=== PATIENT | male | born 1995 | race Two or more races ===

== ENCOUNTER 2017-07-24 11:32 | Emergency (ER) | payer OTHER ==
[2017-07-24 11:49] VITALS: BMI 25.3
[2017-07-24 11:52] VITALS: PULSE 89; RESP 16; TEMP 97.8; O2SAT 99
[2017-07-24 12:01] VITALS: BP 127/69
--- NOTE | 2017-07-24 12:03 | ED PDOC ---
Arrival/HPI - General Chief Complaint: Eye Problem Time Seen by Provider: 07/24/17 11:40 Historian: Patient, Parent - History of Present Illness Narrative History of Present Illness (Text): you were treated in the ED today for tetanus uptodate past 5 years, doesn't wear glasses or contact lenses and yesterday got hit in the right eye with a branch with pain and light sensitivity and otherwise without any nausea/vomiting /headache/dizziness/difficulty breathing/chest pain/abdomen pain/numbness/ tingling/loss of limb function/pain with urination. 07/24/17 11:57 07/24/17 11:58 07/24/17 12:04 Time/Duration: 24 hours Symptom Onset: Gradual Symptom Course: Unchanged Quality: Aching Severity Level: 2 Activities at Onset: Rest Context: Sitting Past Medical History - Provider Review Nursing Documentation Reviewed: Yes - Travel History Have you recently traveled outside [place] w/in the past 3 mons?: No - Psychiatric Hx Substance Use: No Family/Social History - Physician Review Nursing Documentation Reviewed: Yes Family/Social History: No Known Family HX Smoking Status: Never Smoked Hx Alcohol Use: No Hx Substance Use: No Allergies/Home Meds Allergies/Adverse Reactions: Allergies No Known Allergies Allergy (Verified 05/02/15 09:54) Review of Systems - Review of Systems Constitutional: Normal Eyes: Eye Pain ENT: Normal Respiratory: Normal Cardiovascular: Normal Gastrointestinal: Normal Genitourinary Male: Normal Musculoskeletal: Normal Skin: Normal Neurological: Normal Endocrine: Normal Hemo/Lymphatic: Normal Psychiatric: Normal Physical Exam Vital Signs Reviewed: Yes Vital Signs Temp Pulse Resp BP Pulse Ox 07/24/17 11:59 127/69 07/24/17 11:49 97.8 F 89 16 99 Temperature: Afebrile Blood Pressure: Hypertensive Pulse: Regular Appearance: Positive for: Well-Appearing, Non-Toxic, Comfortable Pain Distress: None Mental Status: Positive for: Alert and Oriented X 3 - Systems Exam Head: Present: Atraumatic, Normocephalic Pupils: Present: PERRL Extroacular Muscles: Present: EOMI Conjunctiva: Present: Normal Ears: Present: Normal Mouth: Present: Moist Mucous Membranes Pharnyx: Present: Normal Nose (External): Present: Atraumatic Nose (Internal): Present: Normal Inspection Neck: Present: Normal Range of Motion Respiratory/Chest: Present: Clear to Auscultation, Good Air Exchange Cardiovascular: Present: Regular Rate and Rhythm Abdomen: No: Tenderness, Distention, Normal Bowel Sounds, Peritoneal Signs, Rebound, Guarding, McBurney's Point Tender, Rovsing's Sign Present, Hernias, Feeding Tubes, Ostomy Tubes, Mass/Organomegaly, Scars, Other Back: Present: Normal Inspection Upper Extremity: Present: Normal Inspection Lower Extremity: Present: Normal Inspection Neurological: Present: GCS=15, CN II-XII Intact, Speech Normal, Motor Func Grossly Intact Skin: Present: Warm, Normal Color Psychiatric: Present: Alert, Oriented x 3, Normal Insight, Normal Concentration Medical Decision Making ED Course and Treatment: you were treated in the ED today for tetanus uptodate past 5 years, doesn't wear glasses or contact lenses and yesterday got hit in the right eye with a branch with pain and light sensitivity and otherwise without any nausea/vomiting /headache/dizziness/difficulty breathing/chest pain/abdomen pain/numbness/ tingling/loss of limb function/pain with urination. You were otherwise breathing easily, smiling and talking with your mother, good strength/sensation , walking easily, clear lungs, no abdomen tenderness, left eye no acute findings and vision 20/20 and right eye vision 20/20 and magnification/slit lamp /flourosein examination with corneal injury near the pupil but no foriegn body, no fever temp 97.8, stable heart rate 89, stable breathing rate 16, excellent oxygen level 99% room air, elevated blood pressure 127/69 which we recommend repeat in 2-3 days primary care office to determine further treatment, eye drop pain medication, motrin, done in the ED with improvement, discussed wtih Dr. Gagnon's office and they will see you today 130pm, counselled to rest in a dark room as needed and thus discharged home with mom. 1. Recommend sulfacetamide as directed for right eye infection control. 2. Recommend motrin as directed for pain. 3. Recommend follow-up primary care 1-2 days to review symptoms, referral to 130pm today ophthalmology clinic for right eye corneal injury today [address] [id number] and phone [phone]. 4. If any worsening pain, fever, chills, nausea, vomiting, difficulty breathing, numbness, loss of limb function, pain with urination or any medical condition then return to the ED. 07/24/17 12:08 07/24/17 12:09 Reassessment Condition: Re-examined, Improved - Medication Orders Current Medication Orders: Discontinued Medications Ibuprofen (Motrin Tab) 800 mg PO STAT STA Stop: 07/24/17 11:57 Disposition/Present on Arrival - Present on Arrival Any Indicators Present on Arrival: No History of DVT/PE: No History of Uncontrolled Diabetes: No Urinary Catheter: No History of Decub. Ulcer: No History Surgical Site Infection Following: None - Disposition Have Diagnosis and Disposition been Completed?: Yes Diagnosis: Corneal injury Disposition: HOME/ ROUTINE Disposition Time: 12:10 Patient Plan: Discharge Patient Problems: Current Active Problems Problem Status Onset Corneal injury Acute Condition: IMPROVED Discharge Instructions (ExitCare): Corneal Ulcer (DC) Additional Instructions: you were treated in the ED today for tetanus uptodate past 5 years, doesn't wear glasses or contact lenses and yesterday got hit in the right eye with a branch with pain and light sensitivity and otherwise without any nausea/vomiting /headache/dizziness/difficulty breathing/chest pain/abdomen pain/numbness/ tingling/loss of limb function/pain with urination. You were otherwise breathing easily, smiling and talking with your mother, good strength/sensation , walking easily, clear lungs, no abdomen tenderness, left eye no acute findings and vision 20/20 and right eye vision 20/20 and magnification/slit lamp /flourosein examination with corneal injury near the pupil but no foriegn body, no fever temp 97.8, stable heart rate 89, stable breathing rate 16, excellent oxygen level 99% room air, elevated blood pressure 127/69 which we recommend repeat in 2-3 days primary care office to determine further treatment, eye drop pain medication, motrin, done in the ED with improvement, discussed wtih Dr. Gagnon's office and they will see you today 130pm, counselled to rest in a dark room as needed and thus discharged home with mom. 1. Recommend sulfacetamide as directed for right eye infection control. 2. Recommend motrin as directed for pain. 3. Recommend follow-up primary care 1-2 days to review symptoms, referral to 130pm today ophthalmology clinic for right eye corneal injury today [address] [place] [address] and phone [phone]. 4. If any worsening pain, fever, chills, nausea, vomiting, difficulty breathing, numbness, loss of limb function, pain with urination or any medical condition then return to the ED. Prescriptions: Ibuprofen [Motrin Tab] 800 mg PO Q8 PRN 10 Days #30 tab PRN Reason: Pain, Mild (1-3) Sulfacetamide Sodium [Bleph 10% Eye Drops] 2 drop OD Q6 7 Days #1 bottle Referrals: Jose Gagnon [Staff Provider] - Follow up with primary Forms: [employer] ([place]), SCHOOL NOTE
== END 2017-07-24 12:30 | disposition home or self-care (01) ==
LOC: ED 11:32
DX: S05.8X1A Other injuries of right eye and orbit, initial encounter (principal); W22.8XXA Striking against or struck by other objects, initial encounter; Y92.9 Unspecified place or not applicable

== ENCOUNTER 2017-10-27 20:48 | Emergency (ER) | payer OTHER ==
[2017-10-27 20:48] VITALS: BMI 25.3
[2017-10-27 21:03] VITALS: BP 115/65; PULSE 71; RESP 16; TEMP 99; O2SAT 98
--- NOTE | 2017-10-27 21:32 | ED PDOC ---
Arrival/HPI - General Chief Complaint: Abnormal Skin Integrity Time Seen by Provider: 10/27/17 21:00 Historian: Patient - History of Present Illness Narrative History of Present Illness (Text): Rosemary Linda is a 22 year old male, with no significant past medical history, who presents to the Emergency department complaining of a rash. Patient reports onset of 2-3 days ago, gradually worsening, red, itchy, nonpainful, no associated with swelling or fever or shortness of breath. Patient notes he has no known drug allergies and denies taking any medicine to relieve symptoms. Patient denies any fever, chills, chest pain, use of new soap, recent travel, being around animals, new sheets or clothes, shortness of breath, nausea, vomiting, diarrhea, urinary symptoms, back pain, neck pain, headache, dizziness , or any other complaints. Time/Duration: Other (2-3 days ) Symptom Onset: Sudden Symptom Course: Unchanged Activities at Onset: Light Context: Home Past Medical History - Provider Review Nursing Documentation Reviewed: Yes - Travel History Have you recently traveled outside [place] w/in the past 3 mons?: No - Cardiac Hx Cardiac Disorders: No - Pulmonary Hx Respiratory Disorders: No - Neurological Hx Neurological Disorder: No - HEENT Hx HEENT Disorder: No - Renal Hx Renal Disorder: No - Endocrine/Metabolic Hx Endocrine Disorders: No - Hematological/Oncological Hx Blood Disorders: No - Integumentary Hx Dermatological Disorder: No - Musculoskeletal/Rheumatological Hx Musculoskeletal Disorders: No - Gastrointestinal Hx Gastrointestinal Disorders: No - Genitourinary/Gynecological Hx Genitourinary Disorders: No - Psychiatric Hx Psychophysiologic Disorder: No Hx Substance Use: No Family/Social History - Physician Review Nursing Documentation Reviewed: Yes Family/Social History: No Known Family HX Smoking Status: Never Smoked Hx Alcohol Use: No Hx Substance Use: No Allergies/Home Meds Allergies/Adverse Reactions: Allergies No Known Allergies Allergy (Verified 05/02/15 09:54) Review of Systems - Physician Review All systems were reviewed & negative as marked: Yes - Review of Systems Constitutional: absent: Fevers Respiratory: absent: SOB Skin: Rash Physical Exam - Physical Exam Narrative Physical Exam (Text): 10/27/17 21:30 Constitutional: No acute distress. Head: Normocephalic. Atraumatic. Eyes: PERRL. ENT: Moist mucous membranes. Airways patent. No swelling. No stridor. Neck: Supple. Cardiovascular: Regular rate. Chest: No tenderness. Respiratory: Clear to auscultation bilaterally. No wheezing. GI: Soft. Nontender. Nondistended. Back: No CVA tenderness. Musculoskeletal: No tenderness or swelling of extremities. Skin: Diffuse urticaria to the bilateral extremities, neck, back, forehead Neurologic: Alert, no focal deficit. Vital Signs Temp Pulse Resp BP Pulse Ox 10/27/17 21:48 99.0 F 71 16 115/65 98 10/27/17 21:00 99.0 F 71 16 115/65 98 Medical Decision Making ED Course and Treatment: Impression: 22 y/o M p/w diffuse, itchy rash consistent with generalized allergic reaction and no involvement of airway. Plan: --Antihistamines. Patient is stable for discharge. Patient was instructed to follow up with physician or return if symptoms worsen or new concerning symptoms arise, especially if developing throat swelling or difficulty breathing. - Scribe Statement The provider has reviewed the documentation as recorded by the Scribe Mari Garcia All medical record entries made by the Scribe were at my direction and personally dictated by me. I have reviewed the chart and agree that the record accurately reflects my personal performance of the history, physical exam, medical decision making, and the department course for this patient. I have also personally directed, reviewed, and agree with the discharge instructions and disposition. Disposition/Present on Arrival - Present on Arrival Any Indicators Present on Arrival: No History of DVT/PE: No History of Uncontrolled Diabetes: No Urinary Catheter: No History of Decub. Ulcer: No History Surgical Site Infection Following: None - Disposition Have Diagnosis and Disposition been Completed?: Yes Diagnosis: Urticaria Disposition: HOME/ ROUTINE Disposition Time: 21:31 Patient Plan: Discharge Condition: STABLE Discharge Instructions (ExitCare): Hives Prescriptions: DiphenhydrAMINE [Benadryl] 1 - 2 cap PO Q8 #25 cap Famotidine [Pepcid] 1 tab PO BID #14 tab Referrals: Cynthia Anguiano MD [Primary Care Provider] - Follow up with primary Forms: [employer] (Mongolian)
== END 2017-10-27 21:48 | disposition home or self-care (01) ==
LOC: ED 20:48
DX: L50.9 Urticaria, unspecified (principal)